=== PATIENT | female | born 1990 | race Caucasian/White ===

== ENCOUNTER 2017-09-21 13:54 | Emergency (ER) | payer MEDICAID, OTHER ==
--- NOTE | 2017-09-21 17:36 | OBHP ---
Datetime: 09/21/2017 14:44 IP Adm Impression: , intrauterine IP Admit Plan: Observation/Evaluation IP Admit Plan Other: Tranferred to ED Admit Comment, IP Provider: 27 yo at 31+2 wks w/ EDC 11/21/2017 w/ h/o demise at term, reports that she has been hearing a clicking sound w/ movement x 3 days. Pt denies VB, LOF an d reports movement. Pt also c/o pain in right inner thigh x 4 days. Pt denies any trauma, sha ving to the area. Pt denies fever, chills, SOB. Pt receives her PN care w/ [facility] with Dr. Sanchez. PMH: Healthy PSH: None Meds: Baby aspirin, PNVs All: NKDA Fam hx: N/c Ob hx: 09/2011 FT VD female 01/2013 demise at 40 wks, VD male 02/2014 FT VD male, IOL at 38 wks [employer] hx: 15 x regular periods Pt denies STDs, abn paps Soc hx: pt denies tobacco, alcohol, illicit drug use PE: AFVSS Gen'l appears comfortable in bed Abd: soft, NT gravid Ext: right inner thigh w/ fluctuant red, warm, tender mass A/P: 27 yo at 31+2 wks w/ a h/o FD at term, c/o a clicking sound w/ movement, also c /o right inner thigh pain which appears to be an abscess NST reactive, BPP 8/8, NICA 12 Pt cleared obstetrically Spoke w/ ED physician, Dr. Kolb and transferred her to ED for eval and tx of right thigh abscess Pt has an appoitment w/ Dr. Sanchez next Sun., 09/26/2017. Extremities - PN: Normal Abdomen - PN: Normal Back - PN: Normal Lungs - PN: Normal Heart - PN: Normal General - PN: Normal FHR - Baseline A Provider: 130's Contraction Comments Provider: None Comments, ACOG Physical Exam: Right inner thigh w/ fluctuant mass under a tellez bandage, red, warm, a nd exquisitely tender EGA AdmitDate IP: 31.3 IP Chief Complaint: Other NICHD Variability Prov Fetus A: Moderate 6-25bpm NICHD Accel Fetus A IP Provider: [id number] NICHD Decel Fetus A IP Provider: None
--- NOTE | 2017-09-21 17:57 | US ---
PROCEDURE: BIOPHYSICAL PROFILE HISTORY: clicking sound w/ movement COMPARISON: None TECHNIQUE: Transabdominal ultrasound was performed evaluating gestation for biophysical profile with limited images submitted. FINDINGS: A single viable intrauterine gestation is identified with cardiac activity of 153 beats per minute in apparent cephalic lie. Internal cervical os is closed with cervical length measuring 4.5 cm. No obvious myometrial pathology is evident with a hive posterior fundal placenta identified. Biophysical profile: breathing movements - 2. movements - 2. tones - 2. Amniotic fluid - 2. Amniotic fluid index 12.7 cm. Biophysical score total: 8/8. IMPRESSION: Single viable intrauterine gestation is identified in cephalic lie with positive cardiac activity and Biophysical profile score total: 8/8.
[2017-09-21] MEDS ORDERED: Lidocaine 2% w Epi 1:100,000 Inj IJ ONE (18:42)
[2017-09-21] MEDS ORDERED: Lidocaine 1% Inj (20ml) SC ONE (18:56)
--- NOTE | 2017-09-21 18:57 | OBDCSUM ---
Datetime: 09/21/2017 17:32 Discharged to, Provider: Other Follow up at, Provider: Dr Sanchez Disch Instr Activity: Normal activity Disch Instr Diet: Regular Discharge Instructions, Provider: Routine instructions given Discharge Time: 09/21/2017 17:32 Follow up in weeks, Provider: Sunday s per appt. Discharge Comment, Provider: Pt tranferred to ED for right inner thigh abscess t be evaluated and tr eated Discharge Diagnosis Prov Other: "Clicks" with movement
--- NOTE | 2017-09-21 18:59 | ED PDOC ---
HPI: Skin/Bite Injury Time Seen by Provider: 09/21/17 18:33 Chief Complaint (Nursing): Abnormal Skin Integrity History Per: Patient (this 27 yo female gravid sent by OB/ED by Dr. Campa because of right thigh abscess. Patient states it has been there for 4 days and getting progressively worse.) Past Medical History Reviewed: Historical Data, Nursing Documentation, Vital Signs - Medical History PMH: No Chronic Diseases - Family History Family History: States: No Known Family Hx - Living Arrangements Living Arrangements: With Family - Home Medications Home Medications: Ambulatory Orders Medication Instructions Recorded Amoxicillin/Clavulanate [Augmentin 1 tab PO BID #14 tab 09/21/17 875 MG-125 MG] - Allergies Allergies/Adverse Reactions: Allergies Allergy/AdvReac Type Severity Reaction Status Date / Time No Known Allergies Allergy Verified 09/21/17 18:44 Review of Systems ROS Statement: Except As Marked, All Systems Reviewed And Found Negative Constitutional: Negative for: Fever, Chills Respiratory: Negative for: Shortness of Breath Gastrointestinal: Negative for: Nausea, Vomiting Skin: Positive for: Lesions (right thigh medially, tender and fluctuant) Physical Exam - Reviewed Nursing Documentation Reviewed: Yes Vital Signs Reviewed: Yes - Physical Exam Appears: Positive for: Well, Non-toxic, No Acute Distress, Uncomfortable Skin: Positive for: Rash (right thigh abscess) Eye Exam: Positive for: EOMI, Normal appearance, PERRL ENT: Positive for: Normal ENT Inspection Medical Decision Making Medical Decision Making: I&D done with local anesthesia 1% lidocaine x 8 cc opened with scalpel blade, draining copious purulent material, cultured and packed with strips. patient tolerated procedure well. wound check in 1-2 days. augmentin Disposition - Clinical Impression Clinical Impression: Abscess - Patient ED Disposition Is Patient to be Admitted: No Doctor Will See Patient In The: Office Counseled Patient/Family Regarding: Diagnosis, Need For Followup, Rx Given - Disposition Referrals: Indra Wray [Outside] Disposition: Routine/Home Disposition Time: 19:01 Condition: STABLE Prescriptions: Amoxicillin/Clavulanate [Augmentin 875 MG-125 MG] 1 tab PO BID #14 tab Instructions: Abscess Incision and Drainage - POA Present On Arrival: None
[2017-09-21 19:03] VITALS: O2SAT 98
[2017-09-22 03:02] VITALS: BP 98/59; PULSE 95; RESP 16; TEMP 98
== END 2017-09-21 19:00 | disposition home or self-care (01) ==
LOC: H.ER 13:54 → H.EROB2 13:54 → H.L&D 14:24 → H.ER 19:00
DX: L02.415 Cutaneous abscess of right lower limb (principal); Z33.1 Pregnant state, incidental

== ENCOUNTER 2017-09-23 13:31 | Emergency (ER) | payer MEDICAID ==
[2017-09-23 14:07] VITALS: RESP 18; TEMP 97.6
--- NOTE | 2017-09-23 16:20 | ED PDOC ---
HPI: Wound Care - HPI Time Seen by Provider: 09/23/17 14:18 Chief Complaint (Nursing): Wound Check Chief Complaint (Provider): Wound Check History Per: Patient Exam Limitations: no limitations Onset/Duration Of Symptoms: Days (x2) Current Symptoms Are (Timing): Still Present Additional Complaint(s): 27 year old, 33 week , female presents to the emergency department for wound check of an abscess on her right inner thigh, which was drained here two days prior and packed / dressed at that time. She was given Augmentin. Patient returns today for evaluation of progress. PMD: none provided Past Medical History Reviewed: Historical Data, Nursing Documentation, Vital Signs Vital Signs: Last Vital Signs Temp 97.6 F 09/23/17 14:05 Pulse 102 H 09/23/17 14:05 Resp 18 09/23/17 14:05 BP 112/66 09/23/17 14:05 Pulse Ox 99 09/23/17 14:05 - Medical History PMH: No Chronic Diseases - Surgical History Surgical History: No Surg Hx - Family History Family History: States: Unknown Family Hx - Social History Current smoker - smoking cessation education provided: No Alcohol: None Drugs: Denies - Home Medications Home Medications: Ambulatory Orders Medication Instructions Recorded Amoxicillin/Clavulanate [Augmentin 1 tab PO BID #14 tab 09/21/17 875 MG-125 MG] - Allergies Allergies/Adverse Reactions: Allergies Allergy/AdvReac Type Severity Reaction Status Date / Time No Known Allergies Allergy Verified 09/21/17 18:44 Review of Systems ROS Statement: Except As Marked, All Systems Reviewed And Found Negative Skin: Positive for: Other (wound check of abscess on right inner upper thigh) Physical Exam - Reviewed Nursing Documentation Reviewed: Yes Vital Signs Reviewed: Yes - Physical Exam Appears: Positive for: Well, Non-toxic, No Acute Distress Skin: Positive for: Warm, Dry Eye Exam: Positive for: Normal appearance Extremity: Positive for: Normal ROM, Other (wound on upper inner right thigh is healing well. no erythema or induration. mild drainage noted.) Neurologic/Psych: Positive for: Alert, Oriented (x3) - ECG O2 Sat by Pulse Oximetry: 99 (RA) Pulse Ox Interpretation: Normal Medical Decision Making Medical Decision Making: Time: 16:10 Initial Impression: wound care Initial Plan: --Apply dressing to area of open wound. Advised patient to change dressing x3 a day. She will be given dressing upon discharge. Antibiotics will also be prescribed. Scribe Attestation: Documented by Maya Oneal, acting as a scribe for Juan Jackson PA-C. Provider Scribe Attestation: All medical record entries made by the Scribe were at my direction and personally dictated by me. I have reviewed the chart and agree that the record accurately reflects my personal performance of the history, physical exam, medical decision making, and the department course for this patient. I have also personally directed, reviewed, and agree with the discharge instructions and disposition. Disposition - Clinical Impression Clinical Impression: Wound abscess, Encounter for wound re-check - Patient ED Disposition Is Patient to be Admitted: No Doctor Will See Patient In The: Office Counseled Patient/Family Regarding: Studies Performed, Diagnosis, Need For Followup - Disposition Disposition Time: 16:35 Condition: STABLE Instructions: Wound Care (DC), Wound Care Forms: zumatek (Japanese)
[2017-09-23 16:47] VITALS: BP 100/59; PULSE 86; O2SAT 100
== END 2017-09-23 16:46 | disposition home or self-care (01) ==
LOC: H.ER 13:31
DX: Z48.00 Encounter for change or removal of nonsurgical wound dressing (principal); Z3A.33 33 weeks gestation of pregnancy; O99.713 Diseases of the skin and subcutaneous tissue complicating pregnancy, third trimester

== ENCOUNTER 2017-11-08 07:10 | Inpatient (IN) | payer MEDICAID ==
[2017-11-08 07:31] VITALS: BMI 30.7
[2017-11-08] MEDS ORDERED: Oxytocin 30 units/LR 500ML 30 U/500 ML BAG IV ONE (07:41)
[2017-11-08] MEDS: Lactated Ringer's 1,000 ML IV ONE ×2 (08:10→09:30)
[2017-11-08] MEDS ORDERED: Phenylephrine 10 mg/ml Inj ONE (08:27)
[2017-11-08] MEDS ORDERED: Morphine 5 mg/10 ml preservative-free Inj(Duramorph) ONE (08:27)
[2017-11-08] MEDS ORDERED: ePHEDrine 50 mg/ml Inj ONE (08:27)
[2017-11-08 08:30] LABS: BASO % 0.4 % (0.0-2.0); EOS # 0.2 K/uL (0.0-0.7); EOS % 2.2 % (0.0-4.0); HEMOGLOBIN 12.8 g/dL (12.0-16.0); LYMPH # 2.2 K/uL (1.0-4.3); LYMPH % 26.5 % (20.0-40.0); MEAN CELL VOLUME 81.1 fl (81.0-99.0); MEAN CORPUSCULAR HEMOGLOBIN 27.2 pg (27.0-31.0); MEAN CORPUSCULAR HGB CONC 33.5 g/dL (33.0-37.0); MEAN PLATELET VOLUME 9.7 fl (7.2-11.7); MONO # 0.6 K/uL (0.0-0.8); MONO % 7.1 % (0.0-10.0); NEUT # 5.3 K/uL (1.8-7.0); NEUT % 63.8 % (50.0-75.0); RBC 4.7 Mil/uL (3.80-5.20); RED CELL DISTRIBUTION WIDTH 15.9 % (11.5-14.5); WHITE BLOOD COUNT 8.3 K/uL (4.8-10.8)
[2017-11-08] MEDS ORDERED: ceFAZolin IV 2 gm in Dextrose 2 GM/50 ML BAG IVPB ONE (08:30)
[2017-11-08] MEDS ORDERED: Oxycodone/Acetaminophen 5/325 mg Tab PO PRN ×3 (11:20→15:45)
[2017-11-08] MEDS ORDERED: Lactated Ringer's 1,000 ML IV SCH ×2 (11:30→15:45)
[2017-11-08] MEDS ORDERED: DiphenhydrAMINE 50 mg/ml Inj IVP PRN ×2 (11:39→15:45)
[2017-11-08] MEDS ORDERED: Simethicone 80 mg Chewtab PO SCH (16:00)
[2017-11-08] MEDS: Simethicone 80 mg Chewtab PO SCH ×2 (16:23→21:38)
[2017-11-09 06:34] LABS: HEMOGLOBIN 13.1 g/dL (12.0-16.0); MEAN CELL VOLUME 81.2 fl (81.0-99.0); MEAN CORPUSCULAR HEMOGLOBIN 27.4 pg (27.0-31.0); MEAN CORPUSCULAR HGB CONC 33.7 g/dL (33.0-37.0); RBC 4.77 Mil/uL (3.80-5.20); RED CELL DISTRIBUTION WIDTH 15.4 % (11.5-14.5); WHITE BLOOD COUNT 10.2 K/uL (4.8-10.8)
[2017-11-09] MEDS: Multivitamin With Minerals Tab PO SCH (08:45)
--- NOTE | 2017-11-09 08:46 | OBADHP ---
Datetime: 11/08/2017 07:45 Admit Comment, IP Provider: Patient does not have records LMP: 02/10/2017 PNP: Dr. Sanchez 27 y/o at 38 weeks is presenting for scheduled bc fetus is in transverse lie. Marck villafana denied any complications in this . She denied any vaginal bleeding, contractions or fl uid loss. movement appreciated. PMH: none Famhx: none Sochx: no tobacco, EtOH or drugs Surghx:none Meds: baby aspirin, vaitamins ROS: dizziness, headache, blurry vision, cp, sob, n/v/d _ dysuria PE: General: well appearing female Cardio: s1s2, no murmurs auscultated Resp: clear b/l Abd: BS+ Ext: calves nontender A/P:27 y/o at 38 weeks is presenting for scheduled . 1. Scheduled : admit to unit, follow pre-op protocol. Case discussed with Dr. Laura Lee PGY-1 Addendum: Bedside ultrasound confirmed transverse presentation. Discussed with patient the risks, benefits, alternatives of surgery. Patient consented for delivery. All patient questions answered. An esthesia notified Laura Extremities - PN: Normal Abdomen - PN: Normal Back - PN: Normal Lungs - PN: Normal Heart - PN: Normal General - PN: Normal Gestation - Est Wks by US: 38.0 Vital Signs Provider: Reviewed; Within Normal Limits IP Chief Complaint: Scheduled Section EGA AdmitDate IP: 38.1 IP Adm Impression: Term, intrauterine IP Admit Plan: Admit to unit; Initiate Section protocol Datetime: 09/21/2017 14:44 IP Admit Plan Other: Tranferred to ED FHR - Baseline A Provider: 130's Contraction Comments Provider: None Comments, ACOG Physical Exam: Right inner thigh w/ fluctuant mass under a tellez bandage, red, warm, a nd exquisitely tender NICHD Variability Prov Fetus A: Moderate 6-25bpm NICHD Accel Fetus A IP Provider: 15X15 NICHD Decel Fetus A IP Provider: None
[2017-11-09] MEDS: Simethicone 80 mg Chewtab PO SCH ×3 (08:59→22:47)
[2017-11-09] MEDS ORDERED: Multivitamin With Minerals Tab PO SCH (09:00)
--- NOTE | 2017-11-09 09:07 | OBDS ---
DELIVERY PERSONNEL Delivery Doctor: Emir Sanchez MD Scrub Nurse: Oxana Tate Senior Commissions Analyst: Jacklyn Redding RN/ Jacklyn Garces RN Anesthesiologist: Dr Causey Resident: Dr Lee _ Dr Evans MATERNAL INFORMATION Delivery Anesthesia: Spinal Medications in Delivery: Pitocin Estimated Blood Loss (ml): 800ml Placenta Cultured: No Maternal Complications: None Provider Comments: Viable female delivered from performed with lower uterine transverse in cision. No nuchal cord noted. Bulb suction of 's mouth and nose performed. Baby cried spontaneo usly. Placenta was delivered intact. EBL: 800ml Mother and in stable condition. Both tolerated procedure well. LABOR SUMMARY EDC: 11/21/2017 00:00 No. Babies in Womb: 1 Attempted: No Labor Anesthesia: None LABOR INFORMATION Reason for Induction: Not Applicable Reason for Induction Other: N/A Other Ripening Agents: N/A Oxytocin: N/A Group B Beta Strep: Positive Antibiotics # of Doses: Ancef 2gm IV x 1 dose Antibiotics Time of Last Dose: 0935 Steroids Given: None Reason Steroids Not Administered: Not Applicable Other Reason Not Administered: N/A MEMBRANES Membranes Rupture Method: Artificial Rupture of Membranes: 11/08/2017 10:40 Length of Rupture (hrs): 0.00 Amniotic Fluid Color: Clear Amniotic Fluid Amount: Moderate Amniotic Fluid Odor: None STAGES OF LABOR Stage 3 hrs: 0 Stage 3 min: 1 CSECTION DELIVERY Primary Indication: Transverse/Complex Presentation Secondary Indication: Transverse/Complex Presentation CSection Urgency: Non Elective CSection Incidence: Primary Labor: No Labor Elective: Nonelective CSection Incision: Lower Uterine Transverse BABY A INFORMATION Delivery Date/Time: 11/08/2017 10:40 Method of Delivery: Born in Route : No : N/A Forceps: N/A Vacuum Extraction: N/A Shoulder Dystocia : No SHOULDER DYSTOCIA BABY A Infant Delivery Date/Time: 11/08/2017 10:40 PRESENTATION/POSITION BABY A Presentation: Transverse PLACENTA INFORMATION BABY A Placenta Delivery Time : 11/08/2017 10:41 Placenta Method of Delivery: Manual Removal Placenta Status: Delivered SCORES BABY A Heart Rate 1 min: >100 bpm Resp Effort 1 min: Good Cry Reflex Irritability 1 min: Cough or Sneeze or Pulls Away Muscle Tone 1 min: Active Motion Color 1 min: Body [place], Extremities Blue Resuscitation Effort 1 min: Tactile Stimulation SCORE 1 MIN: 9 Heart Rate 5 min: >100 bpm Resp Effort 5 min: Good Cry Reflex Irritability 5 min: Cough or Sneeze or Pulls Away Muscle Tone 5 min: Active Motion Color 5 min: Body [place], Extremities Blue Resuscitation Effort 5 min: N/A SCORE 5 MIN: 9 INFORMATION BABY A Gestational Age at Delivery: 38.1 Gestational Status: Term Infant Outcome : Liveborn Infant Condition : Stable Infant Sex: Female IDENTIFICATION/MEDS BABY A ID Band Number: [id number] ID Band Location: Left Leg; Left Arm Vitamin K Given : Not Given Erythromycin Given: Not Given WEIGHT/LENGTH BABY A Infant Birthweight (gms): 2910 Infant Weight (lb): 6 Infant Weight (oz): 7 CORD INFORMATION BABY A No. Cord Vessels: 3 Nuchal Cord : N/A Nuchal Cord Other: N/A True Knot: 0 Infant Cord pH Baby Arterial: N/A Infant Cord pH Baby Venous: N/A Cord Blood Taken: Yes Banking/Donate Info: N/A Infant Suction: Mouth; Nose ASSESSMENT BABY A Complications: None Physical Findings at Delivery: Within Normal Limits Respirations: Appears Normal Tufter Hand/ALS Called : No Care By: Dr Justo Loja RN Transferred To: [facility]
[2017-11-09] MEDS: Oxycodone/Acetaminophen 5/325 mg Tab PO PRN (10:13)
--- NOTE | 2017-11-09 12:40 | OBPPN ---
Datetime: 11/09/2017 12:04 PP Pain Prov: Within normal limits PP Nausea Prov: Denies PP Flatus Prov: Yes PP BM Prov: No PP Breasts Prov: Normal PP Heart Prov: Normal PP Lungs Prov: Normal PP Abdomen/Uterus Prov: Normal PP Lochia Prov: Normal PP Vulva/Perineum Prov: Normal PP CVA Tenderness Prov: Normal PP Extremities Prov: Normal PP C/S Incision Prov: Normal PP Progress Prov: Normal PP Impression Prov: Normal progression PP Plan Prov: Continue present management PP Progress Note Prov: She feel fine. Tolerated PO intake this AM A:C/S POD1 PLAN: regular diet; ambulte; continue postop care Vital Signs Provider PP: Reviewed; Within Normal Limits
[2017-11-10] MEDS: Oxycodone/Acetaminophen 5/325 mg Tab PO PRN ×2 (01:20→21:55)
[2017-11-10] MEDS: Simethicone 80 mg Chewtab PO SCH ×5 (04:21→23:16)
[2017-11-10] MEDS: Multivitamin With Minerals Tab PO SCH (08:42)
[2017-11-11] MEDS: Simethicone 80 mg Chewtab PO SCH ×2 (06:21→09:46)
[2017-11-11] MEDS: Multivitamin With Minerals Tab PO SCH (08:23)
[2017-11-11] MEDS: Oxycodone/Acetaminophen 5/325 mg Tab PO PRN (08:23)
--- NOTE | 2017-11-11 08:58 | OBPPN ---
Datetime: 11/10/2017 08:46 PP Pain Prov: Within normal limits PP Nausea Prov: Denies PP Flatus Prov: Yes PP BM Prov: Yes PP Breasts Prov: Normal PP Heart Prov: Normal PP Lungs Prov: Normal PP Abdomen/Uterus Prov: Normal PP Lochia Prov: Normal PP Vulva/Perineum Prov: Normal PP CVA Tenderness Prov: Normal PP Extremities Prov: Normal PP Comments Phys Exam Prov: Abd soft/NT/ND Inc C/D/I No DCT bilat PP Impression Prov: Normal progression PP Plan Prov: Continue present management PP Progress Note Prov: POD #2 s/p C/S recovering well Continue current management. Anticipate IP PP Procedures: None Vital Signs Provider PP: Reviewed; Within Normal Limits
--- NOTE | 2017-11-11 09:41 | OBPPN ---
Datetime: 11/11/2017 09:40 PP Pain Prov: Within normal limits PP Nausea Prov: Denies PP Flatus Prov: Yes PP BM Prov: No PP Breasts Prov: Normal PP Heart Prov: Normal PP Lungs Prov: Normal PP Abdomen/Uterus Prov: Normal PP Lochia Prov: Normal PP Vulva/Perineum Prov: Normal PP CVA Tenderness Prov: Normal PP Extremities Prov: Normal PP Impression Prov: Normal progression PP Plan Prov: Discharge PP Progress Note Prov: She darrel fine - no BM A: S/P C/S day 3 PLAN: duylcolax and discharge home Motrin and Percoset follow up 1-2w Vital Signs Provider PP: Reviewed; Within Normal Limits
[2017-11-11 17:08] VITALS: BP 104/64; PULSE 106; RESP 20; TEMP 99; O2SAT 99
--- NOTE | 2017-11-11 20:28 | OP ---
PROCEDURE DATE: 11/09/2017 PREOPERATIVE DIAGNOSIS: Transverse presentation. POSTOPERATIVE DIAGNOSIS: Transverse presentation. PROCEDURE: Primary low flap transverse section via Pfannenstiel incision. OPERATIVE FINDINGS: Viable female in transverse presentation with Apgars of 9 and 9 in one and five minutes respectively, normal uterus, normal tubes and ovaries bilaterally. ESTIMATED BLOOD LOSS: 800 mL. FLUIDS: 1200 mL Lactated Ringers. URINE OUTPUT: 300 mL of clear urine at the end of procedure. COMPLICATIONS: None. SURGEON: Yaniv Sanchez M.D. ANESTHESIOLOGIST: Korey Causey M.D. ANESTHESIA: Spinal. DESCRIPTION OF PROCEDURE: The patient was taken to the operating room where spinal anesthesia was found to be adequate. The patient was prepped and draped in normal sterile fashion in the dorsal supine position with leftward tilt. A Pfannenstiel skin incision was made with the scalpel. This was carried down through to the underlying layer of fascia with scalpel. Midline dissection was made in the fascial layer with scalpel. The fascial incision was then extended bilaterally sharply with curved Mejias scissors. The fascial layer was from the underlying rectus muscles, both bluntly and sharply with curved Mejias scissors. The rectus muscles were at the midline. The peritoneum was then identified, tented upward with Darlene clamps x2, and entered sharply with Metzenbaum scissors. This peritoneal incision was then extended superiorly and inferiorly with good visualization of the urinary bladder. Bladder blade was inserted into the abdomen. The vesicouterine peritoneum was then identified, tented up with Darlene clamps x2, and entered sharply with Metzenbaum scissors. This peritoneal incision was then extended bilaterally with Metzenbaum scissors. The bladder flap was created digitally. The Ivanna retractor was placed over the urinary bladder. The uterus was incised with the scalpel. The uterine incision was extended bilaterally bluntly. The was internally rotated from transverse to vertex presentation. The 's head was delivered atraumatically. Nose and mouth were suctioned with bulb suction. The remainder of the infant was delivered without complication. The cord was clamped and cut. The was handed off to awaiting pediatricians. Cord gases were collected. Cord blood was collected. The placenta was removed manually. The uterus was cleared of all clots and debris. The uterine incision was repaired with 0 Vicryl in a running, locked fashion. The second layer of same suture was used to imbricate the first and to obtain excellent hemostasis. Reinspection of the uterine incision proved excellent hemostasis. The abdomen and pelvis were irrigated with copious amounts of warm normal saline. All instruments were removed from the patient. The peritoneal layer was closed with a running stitch of 2-0 chromic. The rectus muscles were reapproximated in the midline with a running stitch of 2-0 chromic. The fascial layer was closed with a running stitch of 0 Vicryl. Subcutaneous tissue was closed with a running stitch of 3-0 plain. The skin was closed with subcutaneous stitch of 3-0 Vicryl. The patient tolerated the procedure well. All sponge count, lap count, and needle counts were correct x2. There were no complications. The patient was taken to the recovery room in awake and stable condition. Yaniv Sanchez MD
--- NOTE | 2017-11-11 22:31 | OBDCSUM ---
Datetime: 11/11/2017 09:41 Discharge Time: 11/11/2017 13:03
== END 2017-11-11 13:03 | disposition home or self-care (01) | DRG 371 ==
LOC: H.L&D 07:52 → H.OB/GYN 18:30
PROVIDERS: ADMIT Obstetrics & Gynecology; ATTEND Obstetrics & Gynecology
PROC: 10D00Z1 Extraction of Products of Conception, Low, Open Approach (ICD-10-PCS; principal; 2017-11-08)
PROC: 4A1HXCZ Monitoring of Products of Conception, Cardiac Rate, External Approach (ICD-10-PCS; 2017-11-08)
DX: O32.2XX0 Maternal care for transverse and oblique lie, not applicable or unspecified (principal); Z3A.38 38 weeks gestation of pregnancy; Z37.0 Single live birth